=== PATIENT | female | born 1995 | race Caucasian/White ===

== ENCOUNTER 2018-11-08 06:10 | Emergency (ER) | payer SELFPAY ==
[~2018-11-08] VITALS: Ht 160 cm; Wt 66.2 kg
[~2018-11-08 06:10] MED LIST: ALBU90OI INH; AMOCLA500 PO; AMOX1XR PO; CEPH250A PO; CEPH500 PO; CRUTCH4 USE; HYDACE5 PO; IBUP400 PO; NAPR500 PO; Naprosyn500 MG PO; OXYACE5T PO; PENVK250 PO; PENVK500 PO; PROM25 PO; Percocet 5-3251 EACH PO; Pyridium200 MG PO; RXOXYACE PO; TRAM50 PO; Verotin-Gr Cap1 EACH PO; [UNRECOGNIZED DRUG - REMARK]
[2018-11-08] MEDS ORDERED: CLON2 PO (06:23)
[2018-11-08] MEDS ORDERED: SERT100 PO (06:23)
[2018-11-08] MEDS ORDERED: DIVA250EC (06:23)
[2018-11-08] MEDS ORDERED: Norco 5-325 Ta1 EACH PO (07:13)
[2018-11-08] MEDS ORDERED: Bactrim Ds Tab1 EACH PO (07:13)
[2019-01-19] MEDS ORDERED: Bactrim Ds Tab1 EACH PO (19:44)
[2019-01-19] MEDS ORDERED: Cephalexin500 M1 PO (19:44)
== END 2018-11-08 07:31 | disposition home or self-care (01) ==
LOC: ER 06:10
DX: L02.412 Cutaneous abscess of left axilla (principal); F17.200 Nicotine dependence, unspecified, uncomplicated; Z88.8 Allergy status to other drugs, medicaments and biological substances; Z79.899 Other long term (current) drug therapy
CPT/HCPCS: 10061; 99283-25

== ENCOUNTER 2018-11-10 15:45 | Emergency (ER) | payer SELFPAY ==
[~2018-11-10] VITALS: Ht 160 cm; Wt 66.2 kg
[~2018-11-10 15:45] MED LIST changes: +Bactrim Ds Tab1 EACH PO; +CLON2 PO; +DIVA250EC; +Norco 5-325 Ta1 EACH PO; +SERT100 PO
[2019-01-19] MEDS ORDERED: Bactrim Ds Tab1 EACH PO (19:44)
[2019-01-19] MEDS ORDERED: Cephalexin500 M1 PO (19:44)
== END 2018-11-10 17:25 | disposition home or self-care (01) ==
LOC: ER 15:45
DX: L02.412 Cutaneous abscess of left axilla (principal); Z88.8 Allergy status to other drugs, medicaments and biological substances; Z79.899 Other long term (current) drug therapy; Z87.891 Personal history of nicotine dependence
CPT/HCPCS: 99282

== ENCOUNTER 2019-01-21 17:47 | Emergency (ER) | payer SELFPAY ==
[~2019-01-21] VITALS: Ht 160 cm; Wt 63.5 kg
[~2019-01-21 17:47] MED LIST changes: +Cephalexin500 M1 PO
[2019-01-21] MEDS ORDERED: Cephalexin500 M1 PO (18:43)
== END 2019-01-21 18:45 | disposition home or self-care (01) ==
LOC: ER 17:47
DX: L02.412 Cutaneous abscess of left axilla (principal); L03.112 Cellulitis of left axilla; Z85.3 Personal history of malignant neoplasm of breast; Z87.891 Personal history of nicotine dependence; Z88.8 Allergy status to other drugs, medicaments and biological substances; Z79.899 Other long term (current) drug therapy
CPT/HCPCS: 99282

== ENCOUNTER 2023-04-30 09:13 | Emergency (ER) | payer OTHER ==
[~2023-04-30] VITALS: Ht 160 cm; Wt 72.6 kg
[2023-04-30 11:05] LABS: Influenza A, PCR NEGATIVE (NEGATIVE); Influenza B, PCR NEGATIVE (NEGATIVE); Resp Syncytial Virus, PCR NEGATIVE (NEGATIVE); SARS-Cov-2 (COVID-19) PCR, MMC NEGATIVE (NEGATIVE)
[2023-04-30 11:30] VITALS: BP 133/76
== END 2023-04-30 11:30 | disposition home or self-care (01) ==
LOC: ER 09:13
PROVIDERS: Student in an Organized Health Care Education/Training Program
DX: B34.9 Viral infection, unspecified (principal); Z20.822 Contact with and (suspected) exposure to COVID-19; Z87.891 Personal history of nicotine dependence; Z88.8 Allergy status to other drugs, medicaments and biological substances
CPT/HCPCS: 0241U; 99284; A9270

== ENCOUNTER 2024-07-13 11:58 | Emergency (ER) | payer OTHER ==
[~2024-07-13] VITALS: Ht 160 cm; Wt 99.8 kg
[2024-07-13 12:55] VITALS: BP 134/84
[2024-07-13] MEDS ORDERED: Methadone HCL 10 MG TAB PO ONE (13:30)
== END 2024-07-13 14:17 | disposition home or self-care (01) ==
LOC: ER 11:58
DX: Z02.89 Encounter for other administrative examinations (principal); F11.10 Opioid abuse, uncomplicated; Z87.891 Personal history of nicotine dependence; Z88.8 Allergy status to other drugs, medicaments and biological substances; Z79.2 Long term (current) use of antibiotics; Z16.19 Resistance to other specified beta lactam antibiotics
CPT/HCPCS: 99281; A9270

== ENCOUNTER 2024-11-01 08:19 | Emergency (ER) | payer OTHER ==
[~2024-11-01] VITALS: Ht 160 cm; Wt 93.4 kg
[2024-11-01] MEDS ORDERED: NS 1,000 ML IV SCH (12:00)
[2024-11-01] MEDS ORDERED: Ketorolac Tromethamine 15mg Vial IV ONE (12:00)
[2024-11-01] MEDS ORDERED: DiphenhydrAMINE HCl 50 MG/ML 1ML Vial IV ONE (12:05)
[2024-11-01] MEDS ORDERED: Prochlorperazine Edisylate 10 mg Vial IV ONE (12:05)
[2024-11-01 12:19] LABS: Influenza A, PCR NEGATIVE (NEGATIVE); Influenza B, PCR NEGATIVE (NEGATIVE); Resp Syncytial Virus, PCR NEGATIVE (NEGATIVE); SARS-Cov-2 (COVID-19) PCR, MMC NEGATIVE (NEGATIVE)
[2024-11-01 12:52] LABS: BASOPHILS ABSOLUTE AUTO 0.03 K/mm3 (0.00-0.23); BASOPHILS PERCENT AUTO 0 % (0-2); EOSINOPHILS ABSOLUTE AUTO 0.27 K/mm3 (0.00-0.68); EOSINOPHILS PERCENT AUTO 4 % (0-6); Hematocrit 42.6 % (33.0-51.0); Hemoglobin 14.4 g/dL (11.5-16.0); IMMATURE GRAN ABSOLUTE AUTO 0.01 K/mm3 (0.00-0.10); IMMATURE GRAN PERCENT AUTO 0 % (0-1); LYMPHOCYTES ABSOLUTE AUTO 2.77 K/mm3 (0.84-5.20); LYMPHOCYTES PERCENT AUTO 39 % (21-46); MONOCYTES ABSOLUTE AUTO 0.54 K/mm3 (0.16-1.47); MONOCYTES PERCENT AUTO 8 % (4-13); Mean Corpuscular HGB Conc 33.8 g/dL (31.5-36.5); Mean Corpuscular Volume 96 fL (80-100); NEUTROPHILS ABSOLUTE AUTO 3.48 K/mm3 (1.96-9.15); NEUTROPHILS PERCENT AUTO 49 % (41-73); NRBC ABSOLUTE 0.00 K/mm3 (0.00-0.02); NRBC Auto 0.0 /100 WBC (0.0-0.2); Platelet Count 299 K/mm3 (150-400); RDW Coefficient Variation 12.7 % (11.7-14.2); RDW Standard Deviation 44.7 fL (35.1-46.3)
[2024-11-01 13:11] LABS: Alanine Aminotransfer (ALT/SGP 30.0 U/L (12-78); Albumin, Blood 3.4 g/dL (3.4-5.0); Albumin/Globulin Ratio 0.7 (0.8-1.8); Anion Gap 5.0 mmol/L (3-11); Aspartate Aminotrans (AST/SGOT 27.0 U/L (12-37); Bilirubin, Total 0.3 mg/dL (0.1-1.0); Blood Urea Nitrogen 13.0 mg/dL (8-24); CO2, Blood 32.0 mmol/L (21-32); Calcium, Blood 8.6 mg/dL (8.5-10.1); Chloride, Blood 102.0 mmol/L (98-108); Creatinine, Blood 0.83 mg/dL (0.40-1.00); Globulin, Blood 4.6 g/dL (2.2-4.0); Glucose, Blood 91.0 mg/dL (70-99); Potassium, Blood 3.9 mmol/L (3.5-5.5); Sodium, Blood 135.0 mmol/L (136-145); Total Protein, Blood 8.0 g/dL (6.4-8.2)
[2024-11-01 13:26] VITALS: BP 116/68
[2024-11-01] MEDS ORDERED: AMOCLA875 PO ×2 (13:45→13:46)
== END 2024-11-01 13:59 | disposition home or self-care (01) ==
LOC: ER 08:19
PROVIDERS: Physician Assistant
DX: J32.0 Chronic maxillary sinusitis (principal); R11.2 Nausea with vomiting, unspecified; Z88.8 Allergy status to other drugs, medicaments and biological substances; Z79.899 Other long term (current) drug therapy; Z87.891 Personal history of nicotine dependence
CPT/HCPCS: 71046; 80053; 83690; 85025; 87637; 96361; 96374; 96375; 99283-25; J0780; J1200; J1885; J7030